=== PATIENT | male | born 1975 | race Caucasian/White ===

== ENCOUNTER 2021-12-09 15:52 | Emergency (ER) | payer OTHER ==
[2021-12-09 16:49] VITALS: TEMP 99.4
[2021-12-09] MEDS ORDERED: ACETAMINOPHEN TAB 500 MG TAB PO STA (17:23)
[2021-12-09] MEDS ORDERED: SODIUM CHLORIDE 0.9% 1,000 ML IV ONE (17:40)
--- NOTE | 2021-12-09 17:42 | XR ---
EXAMINATION TYPE: XR chest 2V DATE OF EXAM: 12/09/2021 COMPARISON: NONE HISTORY: Cough TECHNIQUE: 2 views FINDINGS: Heart is normal. Lungs are clear of infiltrate. No heart failure. There are no hilar masses . Bony thorax is intact. Pulmonary vascularity is normal. IMPRESSION: Normal chest.
--- NOTE | 2021-12-09 17:46 | ED ---
URI HPI - General Chief Complaint: Upper Respiratory Infection Stated Complaint: SOB, chest tightness, Fever Time Seen by Provider: 12/09/21 17:35 Source: patient, RN notes reviewed, old records reviewed Mode of arrival: ambulatory Limitations: no limitations - History of Present Illness Initial Comments: 46-year-old male, well-appearing presents ambulatory to the emergency room with complaints of runny nose, cough and shortness of breath since Tuesday. Patient does have a low-grade fever. He has been vaccinated and boosted against coronavirus. Has not history of liver disease does not take any medication on a daily basis. MD Complaint: fever, cough, rhinorrhea, nasal congestion -: days(s) (4) Severity scale (1-10): 5 Consistency: constant Improves With: nothing - Related Data Home Medications Medication Instructions Recorded Confirmed No Known Home Medications 12/09/21 12/09/21 Allergies Allergy/AdvReac Type Severity Reaction Status Date / Time amoxicillin Allergy Unknown Verified 12/09/21 20:07 Review of Systems ROS Statement: Those systems with pertinent positive or pertinent negative responses have been documented in the HPI. ROS Other: All systems not noted in ROS Statement are negative. Past Medical History Additional Past Medical History / Comment(s): Liver dx. History of Any Multi-Drug Resistant Organisms: None Reported Additional Past Surgical History / Comment(s): Kidney stone surgery. hernia repair Past Psychological History: No Psychological Hx Reported Smoking Status: Current every day smoker Past Alcohol Use History: None Reported Past Drug Use History: None Reported General Exam Limitations: no limitations General appearance: alert, in no apparent distress Head exam: Present: atraumatic Eye exam: Present: normal appearance ENT exam: Present: mucous membranes moist Neck exam: Present: normal inspection. Absent: tenderness, meningismus Respiratory exam: Present: normal lung sounds bilaterally. Absent: respiratory distress, wheezes, rales, stridor, chest wall tenderness, accessory muscle use, decreased breath sounds Cardiovascular Exam: Present: tachycardia GI/Abdominal exam: Present: soft Back exam: Absent: tenderness, CVA tenderness (R), CVA tenderness (L) Neurological exam: Present: alert, oriented X3, normal gait Psychiatric exam: Present: normal affect, normal mood Skin exam: Present: warm, dry, intact, normal color. Absent: rash, cyanosis, diaphoretic, petechiae, pallor Course Vital Signs 12/09/21 12/09/21 12/09/21 16:45 20:00 21:31 Temperature 99.4 F Pulse Rate 114 H 94 93 Respiratory 20 18 18 Rate Blood Pressure 136/76 131/81 117/82 O2 Sat by Pulse 94 L 96 95 Oximetry - Reevaluation(s) Reevaluation #1: 12/09/21 19:51 Medications have not been given to patient at this time. He states he is feeling a little better after resting in the ER. Nursing staff was notified and they are working towards getting the patient his medications. Time: 19:51 Medical Decision Making - Medical Decision Making Patient was initially evaluated in triage. He did test positive for coronavirus and is agreeable to receiving the monoclonal antibodies infusion. Chest x-ray is negative for any acute infiltrate. EKG shows sinus rhythm with tachycardia. Patient was given a liter normal saline and Tylenol. His heart rate came down to 90. Pulse ox 96% on room air. He received monoclonal antibodies infusion and tolerated it well. He'll be discharged home to follow his primary care doctor. Return to the emergency with the new concerning symptoms. Self quarantine for 10 days from symptom onset. - Lab Data Lab Results 12/09/21 Range/Units 16:51 Coronavirus (PCR) Detected A (Not Detectd) - EKG Data EKG shows normal: sinus rhythm Rate: tachycardia (Ventricular rate of 111, MA interval 0.113, QRS 0.85, QTC 0.373) Disposition Clinical Impression: COVID-19 Disposition: HOME SELF-CARE Condition: Good Instructions (If sedation given, give patient instructions): Coronavirus Disease 2019 (COVID-19) Additional Instructions: Self quarantine for 10 days from symptom onset. If no fever or symptoms after 5 days you can go into public with just a mask. You can take Tylenol and Motrin as needed for body aches or fevers. Vitamin C, vitamin D and zinc to improve immune health. Increase your fluid intake to prevent dehydration. Return to the emergency room with any new or concerning symptoms. Is patient prescribed a controlled substance at d/c from ED?: No Referrals: None,Stated [Primary Care Provider] - 1-2 days
[2021-12-09] MEDS ORDERED: BEBTELOVIMAB (EUA) 175 MG/2 ML VIAL IV ONE (18:30)
[2021-12-09 20:06] VITALS: RESP 18
[2021-12-09 21:32] VITALS: BP 117/82; PULSE 93
== END 2021-12-09 21:32 | disposition home or self-care (01) ==
LOC: EC 15:52
DX: U07.1 COVID-19 (principal); F17.200 Nicotine dependence, unspecified, uncomplicated; Z88.0 Allergy status to penicillin
CPT/HCPCS: 93005; 87635; 71046; 99285; 96360; Q0222

== ENCOUNTER → 2023-04-29 | Outpatient (CLI) | payer OTHER ==
--- NOTE | 2023-04-29 11:05 | CT ---
EXAMINATION TYPE: CT abdomen pelvis wo con DATE OF EXAM: 04/29/2023 COMPARISON: HISTORY: right flank pain CT DLP: 1550 mGycm Automated exposure control for dose reduction was used. TECHNIQUE: Helical acquisition of images was performed from the lung bases through the pelvis. FINDINGS: LUNG BASES: Trace of pericardial fluid. Lungs are clear. Heart size normal. LIVER/GB: No significant abnormality is appreciated. PANCREAS: No significant abnormality is seen. SPLEEN: No significant abnormality is seen. ADRENALS: No significant abnormality is seen. KIDNEYS: Right kidney: There is a 7.5 mm mid to lower pole right renal calculus Left kidney: There is a punctate 2 mm lower pole left renal calculus. FREE AIR: No free air is visualized REPRODUCTIVE ORGANS: Prostate normal in size. URINARY BLADDER: Bladder is decompressed and limited. ADENOPATHY: There is a small 1.2 cm peripancreatic mesenteric lymph node. OSSEOUS STRUCTURES: No significant abnormality is seen. BOWEL: No evidence of obstruction or inflammation. OTHER: There is a 1.2 cm soft tissue nodule in the mesentery anterior to the right perirenal space in determinate. Small bilateral fat-containing inguinal hernia. Aorta normal caliber. Small fat-containing anterior abdominal wall hernia. IMPRESSION: 1. BILATERAL NONOBSTRUCTING NEPHROLITHIASIS WITH LARGEST STONE NOTED ON THE RIGHT MEASURING SIDED 7.5 MM 2. 1.2 CM MESENTERIC SOFT TISSUE NODULE IS INDETERMINATE WITHIN THE RIGHT ABDOMEN. RECOMMEND 3 MONTH FOLLOW-UP CT ABDOMEN TO CONFIRM STABILITY.
== END | disposition home or self-care (01) ==
LOC: RADCTMAIN 09:35
PROVIDERS: ATTEND Urology
DX: N20.0 Calculus of kidney (principal)
CPT/HCPCS: 74176

== ENCOUNTER → 2023-08-22 | Outpatient (CLI) | payer OTHER ==
--- NOTE | 2023-08-22 12:04 | CT ---
EXAMINATION TYPE: CT abdomen pelvis w con DATE OF EXAM: 08/22/2023 COMPARISON: 04/29/2023 HISTORY: right sided abdominal pain CT DLP: 1559 mGycm CONTRAST: CT scan of the abdomen and pelvis is performed with Oral Contrast and with IV Contrast, patient injec antonio with 100 mL of Isovue 300. FINDINGS: LUNG BASES-: No visible nodule. No infiltrate. LIVER/GB: No calcified gallstones. Hepatomegaly with underlying hepatic steatosis. No space occupy ing hepatic lesion. Biliary tree is of normal caliber. PANCREAS: No inflammation. No distinct mass. SPLEEN: No splenic enlargement. No lesion seen. ADRENALS: No nodule. No thickening. KIDNEYS/BLADDER: No hydronephrosis. 9.4 mm calculus lower pole right kidney. No distinct renal mass. Urinary bladder grossly unremarkabl e. BOWEL: Normal appendix. Normal bowel caliber. No inflammation. Stable 1.2 cm mesenteric nodule venancio cent ascending colon on the right is stable. GENITAL ORGANS: No gross abnormality. LYMPH NODES: No greater than 1cm abdominal or pelvic lymph nodes are appreciated. AORTA: No significant abnormality. OSSEOUS STRUCTURES: No significant abnormality is seen. OTHER: No significant additional abnormality is seen. IMPRESSION: 1. Stable 1.2 cm mesenteric nodule adjacent ascending colon on the right is stable. Consider follow-u p in 1 year. 2. Nonobstructing right-sided nephrolithiasis.
== END | disposition home or self-care (01) ==
LOC: RADCTMAIN 09:55
PROVIDERS: ATTEND Internal Medicine
DX: K63.89 Other specified diseases of intestine (principal); N20.0 Calculus of kidney; K66.8 Other specified disorders of peritoneum
CPT/HCPCS: 74177; Q9967

== ENCOUNTER → 2023-09-27 | Outpatient (CLI) | payer OTHER ==
[2023-09-27 20:04] LABS: Appearance,Urine Clear (Clear); Basophils # (A) 0.04 X 10*3/uL (0.00-0.10); Basophils % (A) 0.5 %; Bilirubin,Urine Negative (Negative); Blood,Urine Negative (Negative); Color,Urine Dark Yellow (Yellow); Eosinophils # (A) 0.21 X 10*3/uL (0.04-0.35); Eosinophils % (A) 2.4 %; HCT 43.3 % (39.6-50.0); HGB 14.2 g/dL (13.0-17.0); Ketones,Urine Negative (Negative); Lymphocytes # (A) 1.92 X 10*3/uL (0.90-5.00); MCH 32.1 pg (27.0-32.0); MCHC 32.8 g/dL (32.0-37.0); MCV 97.7 FL (80.0-97.0); Mean Platelet Volume 10.1 FL (9.5-12.2); Monocytes # (A) 0.41 X 10*3/uL (0.20-1.00); Monocytes % (A) 4.7 %; NRBC Per 100 WBC 0 X 10*3/uL (0.00-0.01); Neutrophils # (A) 6.08 X 10*3/uL (1.80-7.70); Neutrophils % (A) 69.8 %; Nitrite,Urine Negative (Negative); Platelet Count 154 X 10*3/uL (140-440); RBC 4.43 X 10*6/uL (4.40-5.60); RDW 13.1 % (11.5-14.5); Specific Gravity,Urine 1.032 (1.001-1.030); Urobilinogen,Urine 0.2; WBC 8.71 X 10*3/uL (4.50-10.00)
[2023-09-27 20:38] LABS: Carbon Dioxide 23.3 mmol/L (21.6-31.8); Chloride 104 mmol/L (96-109); Potassium 3.9 mmol/L (3.5-5.5); Sodium 140 mmol/L (135-145)
== END | disposition home or self-care (01) ==
LOC: LABPAT 14:48
PROVIDERS: ATTEND Urology
DX: Z01.812 Encounter for preprocedural laboratory examination (principal); N20.0 Calculus of kidney
CPT/HCPCS: 80051; 81003; 82565; 84520; 85025

== ENCOUNTER 2023-10-03 06:12 | Day surgery (SDC) | payer OTHER ==
[2023-09-29 15:52] VITALS: BMI 32.6
--- NOTE | 2023-10-02 15:13 | P.GSHP ---
History of Present Illness H&P Date: 10/02/23 47 yo male with a history of kidney stones primarily uric acid. His last stone was treated with ureteroscopy. He presents after having some right flank pain. A ct scan at [facility] shows a 1 cm rlp stone. He comes for eswl right as he refuses ureteroscopy. I will see if I can see the stone on kUB to see if eswl is possible - Constitutional Constitutional: Denies chills, Denies fever - EENT Eyes: denies blurred vision, denies pain Ears, nose, mouth and throat: Denies headache, Denies sore throat - Cardiovascular Cardiovascular: Denies chest pain, Denies shortness of breath - Respiratory Respiratory: Denies cough, Denies 7 - Gastrointestinal Gastrointestinal: Denies abdominal pain, Denies diarrhea, Denies nausea, Denies vomiting - Genitourinary (Female) Genitourinary: Denies dysuria, Denies hematuria - Genitourinary (Male) Genitourinary: Denies dysuria, Denies hematuria - Musculoskeletal Musculoskeletal: Denies myalgias - Integumentary Integumentary: Denies pruritus, Denies rash - Neurological Neurological: Denies numbness, Denies weakness - Psychiatric Psychiatric: Denies anxiety, Denies depression - Endocrine Endocrine: Denies fatigue, Denies weight change Past Medical History Past Medical History: Hyperlipidemia Additional Past Medical History / Comment(s): KIDNEY STONES. FATTY LIVER DISEASE. GOUT History of Any Multi-Drug Resistant Organisms: None Reported Additional Past Surgical History / Comment(s): Kidney stone surgery. hernia repair Past Anesthesia/Blood Transfusion Reactions: No Reported Reaction Smoking Status: Current every day smoker - Past Family History Mother Family Medical History: No Reported History Medications and Allergies Home Medications Medication Instructions Recorded Confirmed Type Atorvastatin [Lipitor] 20 mg PO HS 09/29/23 09/29/23 History HYDROcodone/APAP 5-325MG [[place] 1 tab PO Q6HR PRN 09/29/23 09/29/23 History 5-325] Sodium Bicarbonate Tab 650 mg PO TID 09/29/23 09/29/23 History allopurinoL [Zyloprim] 300 mg PO W/LUNCH 09/29/23 09/29/23 History Allergies Allergy/AdvReac Type Severity Reaction Status Date / Time amoxicillin Allergy Unknown Verified 03/14/24 15:19 Childhood Surgical - Exam - General well developed, well nourished, no distress - Eyes normal ocular movement, no icteric - ENT no hearing loss, no congestion - Neck no masses, trachea midline - Respiratory normal respiratory effort, clear to auscultation - Abdomen Abdomen: soft, non tender, no guarding, no rigid, no rebound - Integumentary no rash, no abnormal pigmentation - Neurologic no disoriented, no combative - Psychiatric oriented to time, oriented to person, oriented to place, speech is normal, memory intact Results - Imaging CT scan - abdomen: report reviewed, image reviewed CT scan - pelvis: report reviewed, image reviewed Assessment and Plan Assessment: Impression: right renal stone Plan: eswl right
[2023-10-03] MEDS ORDERED: HYDROmorphone 0.5 MG/0.5 ML SYRINGE IVP PRN (06:43)
[2023-10-03] MEDS ORDERED: METOCLOPRAMIDE 5 MG/ML 2 ML VIAL IVP PRN (06:43)
[2023-10-03] MEDS ORDERED: LIDOCAINE 1% (10MG/ML) FOR IV START INTRADERMA PRN (06:43)
[2023-10-03] MEDS: LACTATED RINGERS 1,000 ML IV SCH (07:06)
[2023-10-03] MEDS: ONDANSETRON 4 MG/2 ML VIAL IVP ONE (07:07)
[2023-10-03 07:08] VITALS: TEMP 97.9
[2023-10-03] MEDS ORDERED: PROPOFOL 10 MG/ML 20 ML VIAL IV ONE (07:25)
[2023-10-03] MEDS ORDERED: fentaNYL (PF) 50 MCG/ML 2 ML AMP ONE (07:25)
[2023-10-03] MEDS ORDERED: MIDAZOLAM 2 MG/2 ML VIAL ONE (07:25)
[2023-10-03] MEDS ORDERED: LIDOCAINE 1% INJ 10MG/ML (20 ML MDV) ONE (07:25)
--- NOTE | 2023-10-03 07:31 | XR ---
EXAMINATION TYPE: XR KUB DATE OF EXAM: 10/03/2023 6:27 AM CLINICAL INDICATION:Male, 47 years old with history of Right Renal Calculi N20.0; [facility] COMPARISON: None. TECHNIQUE: One radiographic view of the abdomen was obtained. FINDINGS: The bowel gas pattern is nonspecific without dilated loops of small or large bowel. There i s no evidence for organomegaly or pneumoperitoneum. The osseous structures are intact. Right renal calculi measuring up to 10 mm. Fecal material and gas are demonstrated throughout the colon and rectu m. Bilateral hip osteoarthrosis. IMPRESSION: 1. Right renal calculus. 2. Nonspecific bowel gas pattern without radiographic evidence for acute process.
--- NOTE | 2023-10-03 07:56 | P.OP ---
Date of Procedure: 10/03/23 Preoperative Diagnosis: Right renal calculus Postoperative Diagnosis: Same Procedure(s) Performed: Extracorporeal shockwave lithotripsy, 2500 shocks at energy level IV Anesthesia: MAC Surgeon: Joseluis Gillette Pathology: none sent Condition: stable Disposition: PACU Indications for Procedure: The patient is 47. History of kidney stones. He has a 7/8 mm right lower pole calyceal stone. He comes for shockwave lithotripsy Description of Procedure: The patient was brought to the operating suite. He's placed on the lithotripsy table. He was given IV sedation. The stone was seen in 2 views with fluoroscopy. Using the compact 2 delta lithotripter 2500 shocks at energy level IV administered to fracture the stone nicely. The end of the procedure the patient's awake and returned recovery in good condition. He tolerated the procedure well. He'll be discharged home upon recovery.
[2023-10-03 08:51] VITALS: BP 134/86; PULSE 66; RESP 14
== END 2023-10-03 08:47 | disposition home or self-care (01) ==
LOC: ORWHC2ENDO 06:12
PROVIDERS: ATTEND Urology
DX: N20.0 Calculus of kidney (principal); K76.0 Fatty (change of) liver, not elsewhere classified; M10.9 Gout, unspecified; E78.5 Hyperlipidemia, unspecified; F17.200 Nicotine dependence, unspecified, uncomplicated; Z87.442 Personal history of urinary calculi; Z88.0 Allergy status to penicillin; Z79.899 Other long term (current) drug therapy
CPT/HCPCS: 74018; 50590; J2250; J2405; J2001; J3010; J2704

== ENCOUNTER → 2023-10-11 | Outpatient (CLI) | payer OTHER ==
--- NOTE | 2023-10-12 15:22 | XR ---
EXAMINATION TYPE: XR KUB DATE OF EXAM: 10/11/2023 10:49 AM CLINICAL INDICATION:Male, 47 years old with history of N20.0 CALCULUS OF KIDNEY; [facility] COMPARISON: KUB 10/03/2023 TECHNIQUE: Supine KUB was obtained. 2 images. FINDINGS: The bowel gas pattern is nonspecific, likely nonobstructive without dilated loops of small or large b owel. Fecal material and gas are demonstrated throughout the colon and rectum. No gross evidence of o rganomegaly. No evidence of pneumoperitoneum in the limitations of supine technique. Essentially stable size of approximately 10 mm calculus projected over the lower pole of the right ki dney. This appears if anything slightly less dense and more mottled, and potentially may be beginning to break up or dissolve. No new calculi are seen projected over the urinary tract. Osseous structures appear grossly intact and unchanged. IMPRESSION: No significant change in size or position of right renal calculus.
== END | disposition home or self-care (01) ==
LOC: RADXRMAIN 10:35
PROVIDERS: ATTEND Urology
DX: N20.0 Calculus of kidney (principal)
CPT/HCPCS: 74018

== ENCOUNTER 2023-11-03 17:21 | Emergency (ER) | payer OTHER ==
[2023-11-03 17:55] VITALS: RESP 18
[2023-11-03 18:05] LABS: Appearance,Urine Clear (Clear); Bilirubin,Urine Negative (Negative); Blood,Urine Moderate (Negative); Color,Urine Light Yellow; Glucose,Urine (UA) Negative (Negative); Ketones,Urine Negative (Negative); Leukocyte Esterase,Urine Negative (Negative); Nitrite,Urine Negative (Negative); PH, Urine 6.5 (5.0-8.0); Protein,Urine Trace (Negative); RBC,Urine >182 /hpf (0-5); Specific Gravity,Urine 1.024 (1.001-1.035); Urobilinogen,Urine <2.0 mg/dL (<2.0); WBC,Urine 1 /hpf (0-5)
[2023-11-03] MEDS: ONDANSETRON 4 MG/2 ML VIAL IVP STA (18:33)
[2023-11-03] MEDS: KETOROLAC 15 MG/ML 1 ML VIAL IVP STA (18:34)
[2023-11-03] MEDS: MORPHINE SULFATE 4 MG/ML SYRINGE IVP STA ×2 (18:35→19:47)
[2023-11-03] MEDS: SODIUM CHLORIDE 0.9% 1,000 ML IV STA (18:37)
--- NOTE | 2023-11-03 19:08 | CT ---
EXAMINATION TYPE: CT abdomen pelvis wo con DATE OF EXAM: 11/03/2023 COMPARISON: 04/29/2023 HISTORY: flank pain and blood in the urine CT DLP: 916.7 mGycm Automated exposure control for dose reduction was used. TECHNIQUE: Helical acquisition of images was performed from the lung bases through the pelvis. FINDINGS: The lungs are clear. Gallbladder is normal and there is no gallstone, wall thickening, pericholecystic fluid or distention . There is no biliary ductal dilatation. There is no organomegaly of the liver, pancreas, spleen or adrenal glands. There is mild hydronephrosis on the right secondary to a 5.4 mm proximal right ureteral calculus. In addition, there is a 6.3 mm calcification in the region of the right UPJ. A third 12 mm calcification is seen in one of the lower pole calyces. There are no left renal calcifications or hydronephrosis.. The caliber of the abdominal aorta is normal and there is no retroperitoneal adenopathy or hemorrhage . The bowel loops are normal in caliber is no evidence of obstruction. No inflammatory changes are iden tified in the mesentery and there is no free intraperitoneal air or fluid. There is no pelvic mass, free fluid, abscess or adenopathy. There is mild diverticulosis of the colon without CT evidence of diverticulitis. The osseous structures and soft tissues are unremarkable. IMPRESSION: 1. Mild right hydronephrosis secondary to 2 calcifications, one in the UPJ and a second in the proxi mal right ureter as described above. 2. No other significant abnormalities within the abdomen or pelvis.
[2023-11-03 19:10] LABS: Basophils % (A) 0 %; Eosinophils # (A) 0.2 k/uL (0-0.7); Eosinophils % (A) 1 %; HCT 40.5 % (39.0-53.0); HGB 13.6 gm/dL (13.0-17.5); Lymphocytes # (A) 1.6 k/uL (1.0-4.8); Lymphocytes % (A) 14 %; MCH 31.9 pg (25.0-35.0); MCHC 33.5 g/dL (31.0-37.0); MCV 95.1 fL (80.0-100.0); Mean Platelet Volume 6.9; Monocytes # (A) 0.6 k/uL (0-1.0); Monocytes % (A) 5 %; Neutrophils # (A) 9.3 k/uL (1.3-7.7); Neutrophils % (A) 78 %; Platelet Count 169 k/uL (150-450); RBC 4.25 m/uL (4.30-5.90); RDW 12.8 % (11.5-15.5); WBC 11.9 k/uL (3.8-10.6)
[2023-11-03 19:26] LABS: ALT 31 U/L (4-49); AST 26 U/L (17-59); African American GFR (CKD) >90 (>60 ml/min/1.73 sqM); Albumin 4.4 g/dL (3.5-5.0); Alkaline Phosphatase 88 U/L (38-126); Anion Gap 7 mmol/L; Blood Urea Nitrogen 20 mg/dL (9-20); Calcium 9.4 mg/dL (8.4-10.2); Carbon Dioxide 26 mmol/L (22-30); Chloride 104 mmol/L (98-107); Glucose 92 mg/dL (74-99); Non-African American GFR(CKD) >90 (>60 ml/min/1.73 sqM); Potassium 4.1 mmol/L (3.5-5.1); Sodium 137 mmol/L (137-145); Total Bilirubin 0.7 mg/dL (0.2-1.3); Total Protein 6.5 g/dL (6.3-8.2)
--- NOTE | 2023-11-03 19:41 | ED ---
General Adult HPI - General Chief complaint: Back Pain/Injury Stated complaint: R side pain Time Seen by Provider: 11/03/23 18:00 Source: patient, RN notes reviewed, old records reviewed Mode of arrival: ambulatory Limitations: no limitations - History of Present Illness Initial comments: Patient is a 47-year-old male presents emergency department complaining of right flank pain. Has a history of kidney stones and states that this feels like kidney stones. Had lithotripsy approximately 4 to 5 weeks ago. No other acute complaints at this time other than mild nausea. Presents for further evaluation. Denies any dysuria or hematuria. Has no constipation or diarrhea. No fevers. - Related Data Home Medications Medication Instructions Recorded Confirmed Atorvastatin [Lipitor] 20 mg PO HS 09/29/23 10/03/23 HYDROcodone/APAP 5-325MG [[place] 1 tab PO Q6HR PRN 09/29/23 10/03/23 5-325] Sodium Bicarbonate Tab 650 mg PO TID 09/29/23 10/03/23 allopurinoL [Zyloprim] 300 mg PO W/LUNCH 09/29/23 10/03/23 Previous Rx's Medication Instructions Recorded Tamsulosin [Flomax] 0.4 mg PO DAILY 14 Days #14 cap 11/03/23 Allergies Allergy/AdvReac Type Severity Reaction Status Date / Time amoxicillin Allergy Unknown Verified 10/03/23 06:52 Childhood Review of Systems ROS Statement: Those systems with pertinent positive or pertinent negative responses have been documented in the HPI. Review of Systems: CONST: Denies fever EYES: Denies blurry vision ENT: Denies nasal congestion C/V: Denies Chest pain RESP: Denies shortness of breath GI: Endorses right flank pain : Denies dysuria SKIN: Denies rash. MSK: Denies joint pain. NEURO: Denies headache ROS Other: All systems not noted in ROS Statement are negative. Past Medical History Additional Past Medical History / Comment(s): Liver dx. History of Any Multi-Drug Resistant Organisms: None Reported Additional Past Surgical History / Comment(s): Kidney stone surgery. hernia rep air Past Psychological History: No Psychological Hx Reported Smoking Status: Former smoker Past Alcohol Use History: None Reported Past Drug Use History: None Reported General Exam - General Exam Comments Initial Comments: General: Appears in no acute distress. HEAD: Normal with no signs of head trauma. EYES: PERRLA, EOMI, conjunctiva normal, no discharge. ENT: Hearing grossly intact, normal oropharynx. RESPIRATORY: Clear breath sounds bilaterally. No wheezes, rales, or rhonchi. C/V: Regular rate and rhythm. S1 and S2 auscultated, no edema ABD: Abdomen soft, nondistended. Tender palpation in the right flank and right CVA. No guarding. No rebound tenderness. No peritoneal signs. EXT: Normal range of motion, no obvious deformity SKIN: No rashes or lesions observed on exposed skin. NEURO: Alert and oriented x 4. Limitations: no limitations Course Vital Signs 11/03/23 11/03/23 17:28 19:53 Temperature 98.3 F 97.7 F Pulse Rate 80 77 Respiratory 18 18 Rate Blood Pressure 161/95 135/80 O2 Sat by Pulse 95 96 Oximetry Medical Decision Making - Medical Decision Making Was pt. sent in by a medical professional or institution (, PA, POLE LIFT OPERATOR, urgent care, hospital, or halfway...) When possible be specific @ -No Did you speak to anyone other than the patient for history (EMS, parent, family, police, friend...)? What history was obtained from this source @ -No Did you review nursing and triage notes (agree or disagree)? Why? @ -I reviewed and agree with nursing and triage notes Were old charts reviewed (outside hosp., previous admission, EMS record, old EKG, old radiological studies, urgent care reports/EKG's, halfway records)? Report findings @ -Old charts reviewed Differential Diagnosis (chest pain, altered mental status, abdominal pain women, abdominal pain men, vaginal bleeding, weakness, fever, dyspnea, syncope, headache, dizziness, GI bleed, back pain, seizure, CVA, palpatations, mental health, musculoskeletal)? @ -Differential Abdominal Pain Men: Appendicitis, cholecystitis, diverticulosis, ischemic bowel, pancreatitis, hepatitis, UTI, gastroenteritis, AAA, incarcerated hernia, bowel obstruction, constipation, inflammatory bowel, hepatitis, peptic ulcer disease, splenic infarction, perforated viscus, testicular torsion, this is not meant to be an all-inclusive list EKG interpreted by me (3pts min.). @ -None done X-rays interpreted by me (1pt min.). @ -None done CT interpreted by me (1pt min.). @ -CT shows 2 kidney stones on the right, causing mild hydronephrosis. 1 is 5.4 mm and another 6.3 mm. Patient has an uncomplicated 12 mm stone located still in the kidney. U/S interpreted by me (1pt. min.). @ -None done What testing was considered but not performed or refused? (CT, X-rays, U/S, labs)? Why? @ -None What meds were considered but not given or refused? Why? @ -None Did you discuss the management of the patient with other professionals (professionals i.e. , PA, POLE LIFT OPERATOR, lab, RT, psych nurse, neonatal social worker, sagger soak, teacher, space officer, disability case manager)? Give summary @ -No Was smoking cessation discussed for >3mins.? @ -No Was critical care preformed (if so, how long)? @ -No Were there social determinants of health that impacted care today? How? (Homelessness, low income, unemployed, alcoholism, drug addiction, transportation, low edu. Level, literacy, decrease access to med. care, custodial, rehab)? @ -No Was there de-escalation of care discussed even if they declined (Discuss DNR or withdrawal of care, Hospice)? DNR status @ -No What co-morbidities impacted this encounter? (DM, HTN, Smoking, COPD, CAD, Cancer, CVA, ARF, Chemo, Hep., AIDS, mental health diagnosis, sleep apnea, morbid obesity)? @ -Kidney stones Was patient admitted / discharged? Hospital course, mention meds given and route, prescriptions, significant lab abnormalities, going to OR and other pertinent info. @ -Based on the patient's presentation and exam, presents with right flank pain. Has a history of kidney stones and this feels like his kidney stones. We will obtain basic labs as well as CT. He will be symptomatically treat with IV fluids, Zofran, pain medications. Patient was in agreement this plan. Laboratory studies remarkable for mild leukocytosis of 11.9 likely reactive. Urine shows blood but no evidence of infection. Normal kidney function. CT imaging does show 2 ureteral lithiasis on the right, 5 mm and 6 mm with mild hydronephrosis. Also a larger stone inside of the right kidney that is likely not causing any symptoms. I discussed results with patient. He expressed understanding. Will be discharged home with Flomax, analgesia medications. Patient already has Zofran as well as a strainer at home. Recommended follow-up with his urologist. He was in agreement this plan. I will provide the patient with a prescription for Tylenol 3 starter pack, Tay max. I instructed the patient to follow up with their PCP in the next 1-3 days.. I explained that the patient should return to the emergency department if they experience any worsening symptoms. Strict return precautions were discussed with the patient. The patient expressed understanding of these instructions. I answered all questions that the patient had. The patient was discharged home in good condition with their prescriptions and follow up information. Undiagnosed new problem with uncertain prognosis? @ -No Drug Therapy requiring intensive monitoring for toxicity (Heparin, Nitro, Insuli n, Cardizem)? @ -No Were any procedures done? @ -No Diagnosis/symptom? @ -Ureteral lithiasis Acute, or Chronic, or Acute on Chronic? @ -Acute Uncomplicated (without systemic symptoms) or Complicated (systemic symptoms)? @ -Complicated Side effects of treatment? @ -No Exacerbation, Progression, or Severe Exacerbation? @ -No Poses a threat to life or bodily function? How? (Chest pain, USA, OR, pneumonia, PE, COPD, DKA, ARF, appy, cholecystitis, CVA, Diverticulitis, Homicidal, Suicidal, threat to staff... and all critical care pts) @ -Unlikely - Lab Data Result diagrams: 11/03/23 18:39 11/03/23 18:39 Lab Results 11/03/23 11/03/23 11/03/23 Range/Units 17:45 18:39 18:39 WBC 11.9 H (3.8-10.6) k/uL RBC 4.25 L (4.30-5.90) m/uL Hgb 13.6 (13.0-17.5) gm/dL Hct 40.5 (39.0-53.0) % MCV 95.1 (80.0-100.0) fL MCH 31.9 (25.0-35.0) pg MCHC 33.5 (31.0-37.0) g/dL RDW 12.8 (11.5-15.5) % Plt Count 169 (150-450) k/uL MPV 6.9 Neutrophils % 78 % Lymphocytes % 14 % Monocytes % 5 % Eosinophils % 1 % Basophils % 0 % Neutrophils # 9.3 H (1.3-7.7) k/uL Lymphocytes # 1.6 (1.0-4.8) k/uL Monocytes # 0.6 (0-1.0) k/uL Eosinophils # 0.2 (0-0.7) k/uL Basophils # 0.0 (0-0.2) k/uL Sodium 137 (137-145) mmol/L Potassium 4.1 (3.5-5.1) mmol/L Chloride 104 (98-107) mmol/L Carbon Dioxide 26 (22-30) mmol/L Anion Gap 7 mmol/L BUN 20 (9-20) mg/dL Creatinine 0.84 (0.66-1.25) mg/dL Est GFR (CKD-EPI)AfAm >90 (>60 ml/min/1.73 sqM) Est GFR (CKD-EPI)NonAf >90 (>60 ml/min/1.73 sqM) Glucose 92 (74-99) mg/dL Calcium 9.4 (8.4-10.2) mg/dL Total Bilirubin 0.7 (0.2-1.3) mg/dL AST 26 (17-59) U/L ALT 31 (4-49) U/L Alkaline Phosphatase 88 (38-126) U/L Total Protein 6.5 (6.3-8.2) g/dL Albumin 4.4 (3.5-5.0) g/dL Urine Color Light Yellow Urine Appearance Clear (Clear) Urine pH 6.5 (5.0-8.0) Ur Specific [place] 1.024 (1.001-1.035) Urine Protein Trace H (Negative) Urine Glucose (UA) Negative (Negative) Urine Ketones Negative (Negative) Urine Blood Moderate H (Negative) Urine Nitrite Negative (Negative) Urine Bilirubin Negative (Negative) Urine Urobilinogen <2.0 (<2.0) mg/dL Ur Leukocyte Esterase Negative (Negative) Urine RBC >182 H (0-5) /hpf Urine WBC 1 (0-5) /hpf Disposition Clinical Impression: Ureterolithiasis Disposition: HOME SELF-CARE Condition: Good Instructions (If sedation given, give patient instructions): Kidney Stones (ED) Prescriptions: Tamsulosin [Flomax] 0.4 mg PO DAILY 14 Days #14 cap Is patient prescribed a controlled substance at d/c from ED?: No Referrals: Sergio Thompson DO [Primary Care Provider] - 1-2 days Time of Disposition: 19:40
[2023-11-03] MEDS: ACET/COD 300 MG/30 MG STARTER PACK 6 TAB BTL PO STA (19:47)
[2023-11-03] MEDS: TAMSULOSIN 0.4 MG CAP.ER.24H PO STA (19:48)
[2023-11-03 20:31] VITALS: BP 135/80; PULSE 77; TEMP 97.7
== END 2023-11-03 19:55 | disposition home or self-care (01) ==
LOC: EC 17:21
DX: N13.2 Hydronephrosis with renal and ureteral calculous obstruction (principal); Z87.442 Personal history of urinary calculi; Z88.0 Allergy status to penicillin
CPT/HCPCS: 36415; 80053; 85025; 81001; 74176; 99284; 96374; 96375 ×2; 96376; 96361; J2270; J2405; J1885

== ENCOUNTER → 2023-11-22 | Outpatient (CLI) | payer OTHER ==
--- NOTE | 2023-11-22 12:22 | XR ---
EXAMINATION TYPE: XR KUB DATE OF EXAM: 11/22/2023 Comparison: 10/11/2023 Clinical History: 47-year-old male N200 CALCULUS OF KIDNEY Findings: Nonobstructive bowel gas pattern. No significant stool burden. Right-sided renal calculi are present, largest measuring 7 mm and 5 mm. Lung bases are clear. Impression: Right-sided nephrolithiasis. Largest calculi measure 9 mm and 5 mm.
== END | disposition home or self-care (01) ==
LOC: RADXRMAIN 09:13
PROVIDERS: ATTEND Urology
DX: N20.0 Calculus of kidney (principal)
CPT/HCPCS: 74018

== ENCOUNTER → 2023-12-16 | Outpatient (CLI) | payer OTHER ==
--- NOTE | 2023-12-16 16:48 | XR ---
EXAMINATION TYPE: XR KUB DATE OF EXAM: 12/16/2023 4:23 PM CLINICAL INDICATION:Male, 48 years old with history of N20.0 CALCULUS OF KIDNEY; [facility] COMPARISON: CT 11/03/2023. TECHNIQUE: One radiographic view of the abdomen was obtained. FINDINGS: The bowel gas pattern is nonspecific without dilated loops of small or large bowel. There i s no evidence for organomegaly or pneumoperitoneum. The osseous structures are intact. Evaluation t he kidneys for renal stones is limited due to overlying bowel gas. There is 3 densities in the projec ting just right of the sacrum possibly within the distal ureter measuring up to [address] correlate seen on 11/03/2023. These findings favor distal ureteral calculi. Fecal material and gas are demonstra antonio throughout the colon and rectum. IMPRESSION: 1. Bowel gas limits evaluation for renal calculi. There our new calcific densities near the distal r ight ureter possibly representing ureteral stones. Attention on short-term follow-up. 2. Nonspecific bowel gas pattern without radiographic evidence for acute process.
== END | disposition home or self-care (01) ==
LOC: RADXRMAIN 16:05
PROVIDERS: ATTEND Urology
DX: N20.0 Calculus of kidney (principal); N28.89 Other specified disorders of kidney and ureter
CPT/HCPCS: 74018

== ENCOUNTER → 2024-03-05 | Outpatient (CLI) | payer OTHER ==
--- NOTE | 2024-04-04 13:25 | NM ---
Patient: Jesse Gutierrez L Ordering Physician: Unknown, Unknown ID: [id number] Phone, Pager: Phone: N/A Pager: N/A : [phone] Age/Gender: 48Y, M Primary Location: N/A Procedure: NM parathyroid Anup dy Date: 03/05/2024 12:02:00 PM EXAMINATION TYPE: NM parathyroid w/spect DATE OF EXAM: 03/06/2024 COMPARISON: NONE CLINICAL INDICATION: Unknown, old with history of ; TECHNIQUE: Following administration of 22.6 mCi Tc99m Sestamibi. Anterior projection images of the neck and ches t were obtained 30 minutes and 4 hours post injection. SPECT images of the neck and chest were obtai trell and reconstructed in three axes. FINDINGS: Thyroid tracer washout: Delayed images demonstrate near-complete tracer washout from the thyroid. Parathyroid uptake: None. The two-hour delayed images do not demonstrate any focal abnormal persisten t uptake in the region of the parathyroid glands to suggest parathyroid adenoma. Normal uptake: There is physiological tracer uptake in the myocardium, liver, salivary glands, and th yroid gland. IMPRESSION: Normal parathyroid imaging study. No evidence for mediastinal uptake to suggest mediastinal parathyro id adenoma
== END | disposition home or self-care (01) ==
LOC: RADNMMAIN 10:52
PROVIDERS: ATTEND Internal Medicine
DX: E21.3 Hyperparathyroidism, unspecified (principal)
CPT/HCPCS: 78071; A9500

== ENCOUNTER → 2024-03-29 | Outpatient (CLI) | payer OTHER ==
--- NOTE | 2024-03-29 16:41 | XR ---
EXAMINATION TYPE: XR KUB DATE OF EXAM: 03/29/2024 3:30 PM CLINICAL INDICATION: Male, 48 years old with history of N20.0 CALCULUS OF KIDNEY; [facility] COMPARISON: 12/16/2023. TECHNIQUE: One radiographic view of the abdomen was obtained. FINDINGS: The bowel gas pattern is nonspecific without dilated loops of small or large bowel. . Fecal material and gas are demonstrated throughout the colon and rectum. There is no evidence for organomegaly or pneumoperitoneum. The osseous structures are intact. There remains a calculus in the pelvis measuring up to 6 mm near the ureteral fascicular junction. IMPRESSION: There is remains 1 calculus projecting over the location of the distal ureter measuring up to 7 mm. N o renal calculi or other calculi visualized.
== END | disposition home or self-care (01) ==
LOC: RADXRMAIN 15:11
PROVIDERS: ATTEND Urology
DX: N20.0 Calculus of kidney
CPT/HCPCS: 74018

== ENCOUNTER → 2024-05-16 | Outpatient (CLI) | payer OTHER ==
--- NOTE | 2024-05-16 16:30 | XR ---
EXAMINATION TYPE: XR KUB DATE OF EXAM: 05/16/2024 COMPARISON: 03/29/2024 INDICATION: Renal calculus TECHNIQUE: Single view abdomen frontal projection FINDINGS: There is a normal bowel gas pattern. Psoas margins are normal. No organomegaly is present. There is a 0.8 cm calcification in the inferior right hemipelvis, present previously. IMPRESSION: 1. Right hemipelvis suspected 0.8 cm ureteral stone remains present. [facility], Workstation: [facility], 05/16/2024 4:27 PM
== END | disposition home or self-care (01) ==
LOC: RADXRMAIN 15:08
PROVIDERS: ATTEND Internal Medicine
CPT/HCPCS: 74018

== ENCOUNTER → 2024-05-18 | Outpatient (CLI) | payer OTHER ==
[2024-05-19 02:25] LABS: Basophils # (A) 0.04 X 10*3/uL (0.00-0.10); Basophils % (A) 0.6 %; Eosinophils # (A) 0.16 X 10*3/uL (0.04-0.35); Eosinophils % (A) 2.2 %; HCT 45.8 % (39.6-50.0); HGB 15.3 g/dL (13.0-17.0); Lymphocytes # (A) 2.33 X 10*3/uL (0.90-5.00); Lymphocytes % (A) 32.5 %; MCH 32.3 pg (27.0-32.0); MCHC 33.4 g/dL (32.0-37.0); MCV 96.6 FL (80.0-97.0); Mean Platelet Volume 9.4 FL (9.5-12.2); Monocytes # (A) 0.49 X 10*3/uL (0.20-1.00); Monocytes % (A) 6.8 %; NRBC Per 100 WBC 0 X 10*3/uL (0.00-0.01); Neutrophils # (A) 4.12 X 10*3/uL (1.80-7.70); Neutrophils % (A) 57.5 %; Platelet Count 151 X 10*3/uL (140-440); RBC 4.74 X 10*6/uL (4.40-5.60); RDW 13.2 % (11.5-14.5); WBC 7.17 X 10*3/uL (4.50-10.00)
[2024-05-19 02:31] LABS: Appearance,Urine Turbid (Clear); Bilirubin,Urine Negative (Negative); Blood,Urine Negative (Negative); Color,Urine Yellow (Yellow); Ketones,Urine Negative (Negative); Nitrite,Urine Negative (Negative); Specific Gravity,Urine 1.026 (1.001-1.030)
[2024-05-19 02:36] LABS: Bacteria,Urine None Seen (None Seen)
[2024-05-19 03:19] LABS: BUN/Creat Ratio 15.22 Ratio (12.00-20.00); Blood Urea Nitrogen 13.7 mg/dL (9.0-27.0); Calcium 9.4 mg/dL (8.7-10.3); Carbon Dioxide 23.3 mmol/L (21.6-31.8); Chloride 102 mmol/L (96-109); Glucose 111 mg/dL (70-110); Potassium 4.3 mmol/L (3.5-5.5); Sodium 140 mmol/L (135-145)
== END | disposition home or self-care (01) ==
LOC: LABPAT 14:49
PROVIDERS: ATTEND Urology
DX: Z01.812 Encounter for preprocedural laboratory examination (principal); N20.1 Calculus of ureter
CPT/HCPCS: 80048; 81001; 85025

== ENCOUNTER 2024-05-21 12:53 | Day surgery (SDC) | payer OTHER ==
--- NOTE | 2024-05-20 15:59 | P.GSHP ---
History of Present Illness H&P Date: 05/20/24 48 yo male with a history of stones has a 5 mm stone in the distal right ureter that he has been trying to pass for several weeks. He is still having intermittent pain. A kub recently identified the stone distally. He comes for right ureteroscopy with laser lithotripsy. The stones have been primarily ca ox - Constitutional Constitutional: Denies chills, Denies fever - EENT Eyes: denies blurred vision, denies pain Ears, nose, mouth and throat: Denies headache, Denies sore throat - Cardiovascular Cardiovascular: Denies chest pain, Denies shortness of breath - Respiratory Respiratory: Denies cough, Denies 7 - Gastrointestinal Gastrointestinal: Denies abdominal pain, Denies diarrhea, Denies nausea, Denies vomiting - Genitourinary (Female) Genitourinary: Denies dysuria, Denies hematuria - Genitourinary (Male) Genitourinary: Denies dysuria, Denies hematuria - Musculoskeletal Musculoskeletal: Denies myalgias - Integumentary Integumentary: Denies pruritus, Denies rash - Neurological Neurological: Denies numbness, Denies weakness - Psychiatric Psychiatric: Denies anxiety, Denies depression - Endocrine Endocrine: Denies fatigue, Denies weight change Past Medical History Past Medical History: Hyperlipidemia, Liver Disease Additional Past Medical History / Comment(s): Fatty liver. Current Kidney stones, gout. Hx of kidney failure 2019 ? r/t BP meds. History of Any Multi-Drug Resistant Organisms: None Reported Additional Past Surgical History / Comment(s): Kidney stone surgery. hernia repair Past Anesthesia/Blood Transfusion Reactions: No Reported Reaction Smoking Status: Current every day smoker - Past Family History Father Family Medical History: No Reported History Medications and Allergies Home Medications Medication Instructions Recorded Confirmed Type Atorvastatin [Lipitor] 20 mg PO HS 09/29/23 05/18/24 History HYDROcodone/APAP 5-325MG [[place] 1 tab PO Q6HR PRN 09/29/23 05/18/24 History 5-325] allopurinoL [Zyloprim] 300 mg PO W/LUNCH 09/29/23 05/18/24 History Tamsulosin [Flomax] 0.4 mg PO DAILY 14 Days #14 cap 11/03/23 05/18/24 Rx Allergies Allergy/AdvReac Type Severity Reaction Status Date / Time amoxicillin Allergy Unknown Verified 05/18/24 09:13 Childhood Surgical - Exam - General well developed, well nourished, no distress - Eyes normal ocular movement, no icteric - ENT no hearing loss, no congestion - Neck no masses, trachea midline - Respiratory normal respiratory effort, clear to auscultation - Abdomen Abdomen: soft, non tender, no guarding, no rigid, no rebound - Integumentary no rash, no abnormal pigmentation - Neurologic no disoriented, no combative - Psychiatric oriented to time, oriented to person, oriented to place, speech is normal, memory intact Results - Imaging Abdominal x-ray: report reviewed, image reviewed CT scan - abdomen: report reviewed, image reviewed CT scan - pelvis: report reviewed, image reviewed Assessment and Plan Assessment: Impression: Right distal ureteral stone Plan: right ureteroscopy with laser lithotripsy
--- NOTE | 2024-05-21 13:15 | XR ---
EXAMINATION TYPE: XR KUB DATE OF EXAM: 05/21/2024 COMPARISON: Multiple KUB radiographs most recent 05/16/2024, CT abdomen and pelvis 11/03/2023 HISTORY: Presurgical for right-sided kidney stone cystoscopy TECHNIQUE: Single supine KUB image of the abdomen is obtained FINDINGS: Small bowel demonstrates no evidence for dilatation or air fluid levels. Gas and fecal material is seen in non-distended colon. No convincing evidence for pneumoperitoneum. No significant change in 7 mm suspected right distal ureter calculus. No definitive renal calculi. The lung bases are clear. The osseous structures are intact. IMPRESSION: No significant change in 7 mm suspected right distal ureter calculus. [facility], , 05/21/2024 1:12 PM
[2024-05-21] MEDS: LACTATED RINGERS 1,000 ML IV SCH (13:54)
[2024-05-21] MEDS: DEXAMETHASONE SOD PHOSPHATE 4 MG/ML 1 ML VIAL IV ONE (13:54)
[2024-05-21] MEDS: ONDANSETRON 4 MG/2 ML VIAL IVP ONE (13:54)
[2024-05-21] MEDS: IV FLUID CONTINUATION 1,000 ML IV ONE (13:56)
[2024-05-21] MEDS ORDERED: MIDAZOLAM 2 MG/2 ML VIAL ONE (15:39)
[2024-05-21] MEDS ORDERED: fentaNYL (PF) 50 MCG/ML 2 ML AMP ONE (15:39)
[2024-05-21] MEDS ORDERED: LIDOCAINE 1% INJ 10MG/ML (20 ML MDV) ONE (15:39)
[2024-05-21] MEDS ORDERED: PROPOFOL 10 MG/ML 20 ML VIAL IV ONE (15:39)
[2024-05-21] MEDS ORDERED: HYDROmorphone (PF) 1 MG/ML ONE (15:39)
[2024-05-21] MEDS: LACTATED RINGERS 1,000 ML IV ONE (16:15)
--- NOTE | 2024-05-21 16:34 | P.OP ---
Date of Procedure: 05/21/24 Preoperative Diagnosis: right ureteral calculus with obstruction Postoperative Diagnosis: same Procedure(s) Performed: cystoscopy with right ureteroscopy and laser lithotripsy, stone basketing Anesthesia: JESUSA Surgeon: Joseluis Gillette Estimated Blood Loss (ml): 10 Pathology: other (stone) Condition: stable Disposition: PACU Indications for Procedure: 48-year-old gentleman with a 70 mm distal ureteral stone that he has failed to pass over the last several weeks. He comes for a right ureteroscopy with laser lithotripsy Description of Procedure: patient brought to the operating suite. Given a general anesthetic. Placed lithotomy position with a sterile prep and drape. Cystoscopy identifies a normal urethra and prostate. The bladder tucker unremarkable. The stone is seen near the intramural tunnel on fluoroscopy. I introduced the semirigid 7-Faroese ureteroscope into the bladder into the right ureter where the stone is seen. With the 365 laser probe and 10 W of energy the stone was broken into tiny pieces. The largest fragments are basketed. Then the procedure the ureters inspected. There is a mild amount of edema. The patient adamantly does not wish to have the stent. I thus removed the ureteroscope. The bladder is drained. The patient is awakened and returned recovery room good condition. He tolerated the procedure well be discharged home upon recovery and found the office in approximately 1 week.
[2024-05-21 16:46] VITALS: RESP 16; TEMP 97.1
[2024-05-21] MEDS: HYDROmorphone 0.5 MG/0.5 ML SYRINGE IVP PRN (17:06)
[2024-05-21] MEDS: HYDROcodone/APAP 5-325MG 1 EACH TAB PO STA (17:18)
--- NOTE | 2024-05-21 17:18 | FL ---
EXAMINATION TYPE: FL guidance operating room DATE OF EXAM: 05/21/2024 4:38 PM COMPARISON: Pre Operative Images if available both CT/MRI or plain film CLINICAL INDICATION: Male, 48 years old with history of RIGHT URETERAL STONE; TECHNIQUE: FL guidance operating room, multiple fluoroscopic images provided for procedure. Total fluoroscopy time: 4 seconds Total submitted images to PACS: 1 DAP: [id number] mGym2 Gycm2 uGym2 cGycm2 or equivalent. FINDINGS: Intraoperative fluoroscopic images were taken No evidence for acute process. IMPRESSION: 1. No evidence for intraoperative complication. 2. Please see the operative/procedural note for further details. [facility], , 05/21/2024 5:16 PM
[2024-05-21 17:35] VITALS: BP 158/83; PULSE 88
== END 2024-05-21 17:56 | disposition home or self-care (01) ==
LOC: OR 12:53
PROVIDERS: ATTEND Urology
DX: N20.1 Calculus of ureter (principal); E78.5 Hyperlipidemia, unspecified; K76.0 Fatty (change of) liver, not elsewhere classified; F17.210 Nicotine dependence, cigarettes, uncomplicated; Z79.899 Other long term (current) drug therapy; Z88.0 Allergy status to penicillin; Z98.890 Other specified postprocedural states
CPT/HCPCS: 82365; 74018; 52353; J2250; J1100; J0690; J2405; J2003; J3010; J1171 ×2; J2704

== ENCOUNTER 2024-05-23 13:36 | Emergency (ER) | payer OTHER ==
[2024-05-23 13:44] VITALS: RESP 18; TEMP 97.8
[2024-05-23] MEDS: KETOROLAC 15 MG/ML 1 ML VIAL IVP STA (14:24)
[2024-05-23] MEDS: ONDANSETRON 4 MG/2 ML VIAL IVP STA (14:25)
[2024-05-23] MEDS: SODIUM CHLORIDE 0.9% 2,000 ML IV STA (14:25)
[2024-05-23] MEDS: HYDROmorphone 0.5 MG/0.5 ML SYRINGE IVP STA (14:25)
[2024-05-23 14:26] LABS: Basophils % (A) 0 %; Eosinophils # (A) 0.2 k/uL (0-0.7); Eosinophils % (A) 2 %; HCT 41.4 % (39.0-53.0); HGB 13.8 gm/dL (13.0-17.5); Lymphocytes # (A) 3.1 k/uL (1.0-4.8); Lymphocytes % (A) 32 %; MCHC 33.2 g/dL (31.0-37.0); MCV 96.5 fL (80.0-100.0); Monocytes # (A) 0.4 k/uL (0-1.0); Monocytes % (A) 4 %; Neutrophils # (A) 6.1 k/uL (1.3-7.7); Neutrophils % (A) 61 %; Platelet Count 131 k/uL (150-450); RBC 4.29 m/uL (4.30-5.90); RDW 13.1 % (11.5-15.5); WBC 9.9 k/uL (3.8-10.6)
[2024-05-23 14:41] LABS: ALT 28 U/L (4-49); AST 25 U/L (17-59); African American GFR (CKD) >90 (>60 ml/min/1.73 sqM); Albumin 4.1 g/dL (3.5-5.0); Alkaline Phosphatase 65 U/L (38-126); Anion Gap 7 mmol/L; Blood Urea Nitrogen 21 mg/dL (9-20); Calcium 8.9 mg/dL (8.4-10.2); Carbon Dioxide 26 mmol/L (22-30); Chloride 106 mmol/L (98-107); Glucose 97 mg/dL (74-99); Lipase 87 U/L (23-300); Non-African American GFR(CKD) >90 (>60 ml/min/1.73 sqM); Potassium 3.8 mmol/L (3.5-5.1); Sodium 139 mmol/L (137-145); Total Bilirubin 0.4 mg/dL (0.2-1.3); Total Protein 6.2 g/dL (6.3-8.2)
[2024-05-23 15:18] LABS: Appearance,Urine Cloudy (Clear); Bilirubin,Urine Negative (Negative); Blood,Urine Large (Negative); Color,Urine Light Red; Glucose,Urine (UA) Negative (Negative); Ketones,Urine Negative (Negative); Leukocyte Esterase,Urine Moderate (Negative); Nitrite,Urine Negative (Negative); PH, Urine 5.5 (5.0-8.0); Protein,Urine 1+ (Negative); RBC,Urine >182 /hpf (0-5); Specific Gravity,Urine 1.023 (1.001-1.035); Squamous Epithelial Cell,Urine 1 /hpf (0-4); Urobilinogen,Urine <2.0 mg/dL (<2.0); WBC,Urine 95 /hpf (0-5)
--- NOTE | 2024-05-23 15:41 | ED ---
General Adult HPI - General Chief complaint: Urogenital Stated complaint: Post-op comp Time Seen by Provider: 05/23/24 13:49 Source: patient, RN notes reviewed Mode of arrival: ambulatory Limitations: no limitations - History of Present Illness Initial comments: 48-year-old male presents emergency department complaint of flank pain, hematuria. Patient states that he had a cystoscopy with right ureteral stone removal. Patient states this was performed [address] Gillette. He. Patient states that he did have some blood but seem to worsen he noticed some clots he does have initial dysuria he states he still has some pain rating to his right flank no fevers or chills admits to some nausea he did take some Trilla for the pain but states he had taken extra 1 to help control symptoms. Patient denies any chest pain no other complaints. - Related Data Home Medications Medication Instructions Recorded Confirmed Atorvastatin [Lipitor] 20 mg PO HS 09/29/23 05/23/24 allopurinoL [Zyloprim] 300 mg PO DAILY 09/29/23 05/23/24 HYDROcodone/APAP 5-325MG [Trilla 1 tab PO Q4HR PRN 05/23/24 05/23/24 5-325] Previous Rx's Medication Instructions Recorded Tamsulosin [Flomax] 0.4 mg PO DAILY 14 Days #14 cap 11/03/23 Ciprofloxacin HCl [Cipro] 500 mg PO Q12HR #14 tablet 05/23/24 Allergies Allergy/AdvReac Type Severity Reaction Status Date / Time amoxicillin Allergy Unknown Verified 05/23/24 14:58 Childhood Penicillins Allergy Unknown Verified 05/23/24 14:58 Childhood Review of Systems ROS Statement: Those systems with pertinent positive or pertinent negative responses have been documented in the HPI. ROS Other: All systems not noted in ROS Statement are negative. Past Medical History Past Medical History: Hyperlipidemia, Liver Disease Additional Past Medical History / Comment(s): Fatty liver. Current Kidney stones, gout. Hx of kidney failure 2020 ? r/t BP meds. History of Any Multi-Drug Resistant Organisms: None Reported Additional Past Surgical History / Comment(s): Kidney stone surgery. hernia repair Past Anesthesia/Blood Transfusion Reactions: No Reported Reaction Past Psychological History: No Psychological Hx Reported Smoking Status: Current every day smoker Past Alcohol Use History: Rare Past Drug Use History: None Reported - Past Family History Father Family Medical History: No Reported History General Exam Limitations: no limitations General appearance: alert, in no apparent distress Head exam: Present: atraumatic, normocephalic, normal inspection Respiratory exam: Present: normal lung sounds bilaterally. Absent: respiratory distress, wheezes, rales, rhonchi, stridor Cardiovascular Exam: Present: regular rate, normal rhythm, normal heart sounds. Absent: systolic murmur, diastolic murmur, rubs, gallop, clicks GI/Abdominal exam: Present: soft, tenderness, normal bowel sounds. Absent: distended, guarding, rebound, rigid Back exam: Present: CVA tenderness (R). Absent: CVA tenderness (L) Course Vital Signs 05/23/24 13:41 Temperature 97.8 F Pulse Rate 81 Respiratory 18 Rate Blood Pressure 135/78 O2 Sat by Pulse 98 Oximetry Medical Decision Making - Medical Decision Making Was pt. sent in by a medical professional or institution (, PA, [employer], urgent care, hospital, or custodial...) When possible be specific @ -No Did you speak to anyone other than the patient for history (EMS, parent, family, police, friend...)? What history was obtained from this source @ -No Did you review nursing and triage notes (agree or disagree)? Why? @ -I reviewed and agree with nursing and triage notes Were old charts reviewed (outside hosp., previous admission, EMS record, old EKG, old radiological studies, urgent care reports/EKG's, custodial records)? Report findings @ -Reviewed inpatient surgical records Differential Diagnosis (chest pain, altered mental status, abdominal pain women, abdominal pain men, vaginal bleeding, weakness, fever, dyspnea, syncope, headache, dizziness, GI bleed, back pain, seizure, CVA, palpatations, mental health, musculoskeletal)? @ -Differential Abdominal Pain Men: Appendicitis, cholecystitis, diverticulosis, ischemic bowel, pancreatitis, hepatitis, UTI, gastroenteritis, AAA, incarcerated hernia, bowel obstruction, constipation, inflammatory bowel, hepatitis, peptic ulcer disease, splenic infarction, perforated viscus, testicular torsion, this is not meant to be an all-inclusive list EKG interpreted by me (3pts min.). @ -[None X-rays interpreted by me (1pt min.). @ -None done CT interpreted by me (1pt min.). @ -None done U/S interpreted by me (1pt. min.). @ -None done What testing was considered but not performed or refused? (CT, X-rays, U/S, labs)? Why? @ -None What meds were considered but not given or refused? Why? @ -None Did you discuss the management of the patient with other professionals (professionals i.e. DrGuerline, PA, [employer], lab, RT, psych nurse, social group worker, life support technician, teacher, conservation enforcement officer, pillowcase cleaner)? Give summary @ -No Was smoking cessation discussed for >3mins.? @ -No Was critical care preformed (if so, how long)? @ -No Were there social determinants of health that impacted care today? How? (Homelessness, low income, unemployed, alcoholism, drug addiction, transportation, low edu. Level, literacy, decrease access to med. care, senior care, rehab)? @ -No Was there de-escalation of care discussed even if they declined (Discuss DNR or withdrawal of care, Hospice)? DNR status @ -No What co-morbidities impacted this encounter? (DM, HTN, Smoking, COPD, CAD, Cancer, CVA, ARF, Chemo, Hep., AIDS, mental health diagnosis, sleep apnea, morbid obesity)? @ -None Was patient admitted / discharged? Hospital course, mention meds given and route, prescriptions, significant lab abnormalities, going to OR and other pertinent info. @ -Discharge patient's laboratory studies unremarkable. Patient feels great improved after IV fluids and analgesics. Patient does have greater than 182 reds and moderate amount of white cells. Patient is concerned for UTI. Patient placed on oral antibiotics. Return parens were discussed. Undiagnosed new problem with uncertain prognosis? @ -No Drug Therapy requiring intensive monitoring for toxicity (Heparin, Nitro, Insulin, Cardizem)? @ -No Were any procedures done? @ -No Diagnosis/symptom? @ -Hematuria, flank pain Acute, or Chronic, or Acute on Chronic? @ -Acute Uncomplicated (without systemic symptoms) or Complicated (systemic symptoms)? @ -Uncomplicated Side effects of treatment? @ -No Exacerbation, Progression, or Severe Exacerbation? @ -No Poses a threat to life or bodily function? How? (Chest pain, USA, GA, pneumonia, PE, COPD, DKA, ARF, appy, cholecystitis, CVA, Diverticulitis, Homicidal, Suicidal, threat to staff... and all critical care pts) @ -No - Lab Data Result diagrams: 05/23/24 14:19 05/23/24 14:19 Lab Results 05/23/24 05/23/24 05/23/24 Range/Units 14:19 14:19 14:19 WBC 9.9 (3.8-10.6) k/uL RBC 4.29 L (4.30-5.90) m/uL Hgb 13.8 (13.0-17.5) gm/dL Hct 41.4 (39.0-53.0) % MCV 96.5 (80.0-100.0) fL MCH 32.0 (25.0-35.0) pg MCHC 33.2 (31.0-37.0) g/dL RDW 13.1 (11.5-15.5) % Plt Count 131 L (150-450) k/uL MPV 7.0 Neutrophils % 61 % Lymphocytes % 32 % Monocytes % 4 % Eosinophils % 2 % Basophils % 0 % Neutrophils # 6.1 (1.3-7.7) k/uL Lymphocytes # 3.1 (1.0-4.8) k/uL Monocytes # 0.4 (0-1.0) k/uL Eosinophils # 0.2 (0-0.7) k/uL Basophils # 0.0 (0-0.2) k/uL Sodium 139 (137-145) mmol/L Potassium 3.8 (3.5-5.1) mmol/L Chloride 106 (98-107) mmol/L Carbon Dioxide 26 (22-30) mmol/L Anion Gap 7 mmol/L BUN 21 H (9-20) mg/dL Creatinine 0.86 (0.66-1.25) mg/dL Est GFR (CKD-EPI)AfAm >90 (>60 ml/min/1.73 sqM) Est GFR (CKD-EPI)NonAf >90 (>60 ml/min/1.73 sqM) Glucose 97 (74-99) mg/dL Calcium 8.9 (8.4-10.2) mg/dL Total Bilirubin 0.4 (0.2-1.3) mg/dL AST 25 (17-59) U/L ALT 28 (4-49) U/L Alkaline Phosphatase 65 (38-126) U/L Total Protein 6.2 L (6.3-8.2) g/dL Albumin 4.1 (3.5-5.0) g/dL Lipase 87 (23-300) U/L Urine Color Light Red Urine Appearance Cloudy (Clear) Urine pH 5.5 (5.0-8.0) Ur Specific [place] 1.023 (1.001-1.035) Urine Protein 1+ H (Negative) Urine Glucose (UA) Negative (Negative) Urine Ketones Negative (Negative) Urine Blood Large H (Negative) Urine Nitrite Negative (Negative) Urine Bilirubin Negative (Negative) Urine Urobilinogen <2.0 (<2.0) mg/dL Ur Leukocyte Esterase Moderate H (Negative) Urine RBC >182 H (0-5) /hpf Urine WBC 95 H (0-5) /hpf Ur Squamous Epith Cells 1 (0-4) /hpf Disposition Clinical Impression: Hematuria, Flank pain, Abdominal pain Disposition: HOME SELF-CARE Condition: Stable Instructions (If sedation given, give patient instructions): Urinary Tract Infection in Men (ED) Additional Instructions: Please return to the Emergency Department if symptoms worsen or any other concerns. Prescriptions: Ciprofloxacin HCl [Cipro] 500 mg PO Q12HR #14 tablet Is patient prescribed a controlled substance at d/c from ED?: No Referrals: Sergio Thompson DO [Primary Care Provider] - 1-2 days Joseluis Gillette MD [STAFF PHYSICIAN] - 1-2 days Time of Disposition: 15:41
[2024-05-23 15:49] VITALS: BP 133/68; PULSE 74
== END 2024-05-23 15:48 | disposition home or self-care (01) ==
LOC: EC 13:36
DX: R31.9 Hematuria, unspecified (principal); R10.9 Unspecified abdominal pain; F17.200 Nicotine dependence, unspecified, uncomplicated; Z88.0 Allergy status to penicillin
CPT/HCPCS: 36415; 80053; 83690; 85025; 81001; 87086; 99283; 96374; 96375 ×2; 96361; J2405; J1885; J1171

== ENCOUNTER → 2024-09-10 | Outpatient (CLI) | payer BC ==
--- NOTE | 2024-09-11 06:59 | CT ---
EXAMINATION TYPE: CT abdomen pelvis w con DATE OF EXAM: 09/10/2024 COMPARISON: CT abdomen and pelvis November 03, 2023 CLINICAL INDICATION: Male, 48 years old with history of K66.8 OTHER SPECIFIED DISORDERS OF PERITONEUM ; PHH, ABD NODULE TECHNIQUE: Performed with Oral Contrast and with IV Contrast, patient injected with 100ml mL of Isovue 300. CT DLP: 1403.2 mGycm Automated exposure control for dose reduction was used. FINDINGS: LUNG BASES: No significant abnormality is appreciated. LIVER/GB: No significant abnormality is appreciated. PANCREAS: No significant abnormality is seen. SPLEEN: No significant abnormality is seen. ADRENALS: No significant abnormality is seen. KIDNEYS: Persistent 5 mm nonobstructing calculus right kidney axial image 38. There is symmetric dania ical medullary uptake and excretion from both kidneys without hydronephrosis seen bilaterally. FREE AIR: No free air is visualized. RETROPERITONEAL ADENOPATHY: None visualized REPRODUCTIVE ORGANS: No significant abnormality is seen URINARY BLADDER: No significant abnormality is seen. PELVIC ADENOPATHY: None visualized. OSSEOUS STRUCTURES: No significant abnormality is seen. BOWEL: Oral contrast reaches the rectum. No abnormal small or large bowel dilatation. Mild wall thic kening left colon is nonspecific taper product of poor distention. OTHER: Stable moderate-sized fat-containing periumbilical hernia sagittal image 63. Stable moderate-s ized fat-containing left inguinal hernia. A few subcentimeter lymph nodes throughout the mesentery are noted. Stable 11 mm low density mass pre sumed lymph node adjacent to the right colon on coronal image 51 is noted. IMPRESSION: Stable right lower quadrant 11 mm low dense mass possible lymph node adjacent to the righ t colon. No significant change from most recent prior CT. [facility], , 09/11/2024 6:56 AM
== END | disposition home or self-care (01) ==
LOC: RADCTMAIN 14:17
PROVIDERS: ATTEND Internal Medicine
DX: N20.0 Calculus of kidney (principal); K66.8 Other specified disorders of peritoneum; K40.90 Unilateral inguinal hernia, without obstruction or gangrene, not specified as recurrent
CPT/HCPCS: 74177; Q9967

== ENCOUNTER → 2024-10-25 | Outpatient (CLI) | payer BC ==
--- NOTE | 2024-10-25 16:28 | XR ---
EXAMINATION TYPE: XR KUB DATE OF EXAM: 10/25/2024 3:28 PM CLINICAL INDICATION: Male, 48 years old with history of N20.0 CALCULUS OF KIDNEY, pain TECHNIQUE: 2 supine images of the abdomen. COMPARISON: CT abdomen and pelvis September 10, 2024. FINDINGS: There is a 2 to 3 mm right renal calculus redemonstrated at superior L3 level. No left-side d nephrolithiasis. Overall nonspecific nonobstructive bowel gas pattern. Visualized lung bases are clear. Osseous struct ures are intact. IMPRESSION: As above. [facility], , 10/25/2024 4:26 PM
== END | disposition home or self-care (01) ==
LOC: RADXRMAIN 15:16
PROVIDERS: ATTEND Urology
DX: N20.0 Calculus of kidney (principal)
CPT/HCPCS: 74018

== ENCOUNTER 2024-11-28 11:53 | Emergency (ER) | payer BC ==
--- NOTE | 2024-11-28 12:37 | ED ---
General Adult HPI - General Chief complaint: Recheck/Abnormal Lab/Rx Stated complaint: groin pain, R leg pain Time Seen by Provider: 11/28/24 12:05 Source: patient Mode of arrival: ambulatory Limitations: no limitations - History of Present Illness Initial comments: Dictation was produced using [employer] dictation software. please excuse any grammatical, word or spelling errors. Chief Complaint: 49-year-old male with right-sided groin pain and right testicular pain History of Present Illness: Patient 49-year-old male with past medical history of dyslipidemia liver disease. States that he is here today for right testicular pain and right groin pain. Denies any urinary symptoms. Patient states that it hurts in his testicular area. No rash fever or chills. No urinary symptoms. The ROS documented in this emergency department record has been reviewed and confirmed by me. Those systems with pertinent positive or negative responses have been documented in the HPI. All other systems are other negative and/or noncontributory. - Related Data Home Medications Medication Instructions Recorded Confirmed Atorvastatin [Lipitor] 20 mg PO HS 09/29/23 05/23/24 allopurinoL [Zyloprim] 300 mg PO DAILY 09/29/23 05/23/24 HYDROcodone/APAP 5-325MG [Wendell 1 tab PO Q4HR PRN 05/23/24 05/23/24 5-325] Previous Rx's Medication Instructions Recorded Tamsulosin [Flomax] 0.4 mg PO DAILY 14 Days #14 cap 11/03/23 Ciprofloxacin HCl [Cipro] 500 mg PO Q12HR #14 tablet 05/23/24 HYDROcodone/APAP 5-325MG [Wendell 1 tab PO Q6HR PRN 3 Days #12 tab 11/28/24 5-325] Allergies Allergy/AdvReac Type Severity Reaction Status Date / Time amoxicillin Allergy Unknown Verified 11/28/24 12:03 Childhood Penicillins Allergy Unknown Verified 11/28/24 12:03 Childhood Review of Systems ROS Statement: Those systems with pertinent positive or pertinent negative responses have been documented in the HPI. ROS Other: All systems not noted in ROS Statement are negative. Past Medical History Past Medical History: Hyperlipidemia, Liver Disease Additional Past Medical History / Comment(s): Fatty liver. Current Kidney stones, gout. Hx of kidney failure 2019 ? r/t BP meds. History of Any Multi-Drug Resistant Organisms: None Reported Additional Past Surgical History / Comment(s): Kidney stone surgery. hernia repair Past Anesthesia/Blood Transfusion Reactions: No Reported Reaction Past Psychological History: No Psychological Hx Reported Smoking Status: Current every day smoker Past Alcohol Use History: Rare Past Drug Use History: None Reported - Past Family History Father Family Medical History: No Reported History General Exam - General Exam Comments Initial Comments: General: Well-appearing, nontoxic, no acute distress. Head: Normocephalic, atraumatic Eyes: PERRLA, EOMI ENT: Airway patent Chest: Nonlabored breathing Skin: No visual rash, normal skin tone Neuro: Alert and oriented 3 Musculoskeletal: No gross abnormalities : No scrotal rash, no scrotal tenderness, no ecchymoses, no high riding testicle Limitations: no limitations Course Vital Signs 11/28/24 11/28/24 12:01 14:06 Temperature 98 F 98.2 F Pulse Rate 98 81 Respiratory 18 17 Rate Blood Pressure 153/80 162/90 O2 Sat by Pulse 98 98 Oximetry Medical Decision Making - Medical Decision Making Was pt. sent in by a medical professional or institution (, PA, SCHOOL TREASURER, urgent care, hospital, or penitentiary...) When possible be specific @ -No Did you speak to anyone other than the patient for history (EMS, parent, family, police, friend...)? What history was obtained from this source @ -No Did you review nursing and triage notes (agree or disagree)? Why? @ -I reviewed and agree with nursing and triage notes Were old charts reviewed (outside hosp., previous admission, EMS record, old EKG, old radiological studies, urgent care reports/EKG's, penitentiary records)? Report findings @ -No old charts were reviewed Differential Diagnosis (chest pain, altered mental status, abdominal pain women, abdominal pain men, vaginal bleeding, musculoskeletal, weakness, fever, dyspnea, syncope, headache, dizziness, GI bleed, back pain, seizure, CVA, palpatations, mental health)? @ -Torsion, epididymitis, orchitis EKG interpreted by me (3pts min.). @ -None done X-rays interpreted by me (1pt min.). @ -None done CT interpreted by me (1pt min.). @ -None done U/S interpreted by me (1pt. min.). @ -Ultrasound scrotum is negative for any acute processes. What testing was considered but not performed or refused? (CT, X-rays, U/S, labs)? Why? @ -None What meds were considered but not given or refused? Why? @ -None Was smoking cessation discussed for >3mins.? @ -No Were there social determinants of health that impacted care today? How? (Homelessness, low income, unemployed, alcoholism, drug addiction, transportation, low edu. Level, literacy, decrease access to med. care, skilled nursing, rehab)? @ -No Was there de-escalation of care discussed even if they declined (Discuss DNR or withdrawal of care, Hospice)? DNR status @ -No What co-morbidities impacted this encounter? (DM, HTN, Smoking, COPD, CAD, Cancer, CVA, ARF, Chemo, Hep., AIDS, mental health diagnosis, sleep apnea, morbid obesity)? @ -None Was patient admitted / discharged? Hospital course, mention meds given and route, prescriptions, significant lab abnormalities, going to OR and other pertinent info. @ -49-year-old male presents emergency department right groin and right scrotal pain. Vital signs stable. Physical examination is benign. Patient has musculoskeletal bone. Urinalysis and ultrasound scrotum shows no acute processes. Patient given prescription for analgesics discharge advised follow- up with primary practice doctor. Did you discuss the management of the patient with other professionals (professionals i.e. , PA, SCHOOL TREASURER, lab, RT, psych nurse, aids social worker, pipeman, teacher, police officer booking, bilingual case manager)? Give summary @ -No Was critical care preformed (if so, how long)? @ -No Undiagnosed new problem with uncertain prognosis? @ -No Drug Therapy requiring intensive monitoring for toxicity (Heparin, Nitro, Insulin, Cardizem)? @ -No Were any procedures done? @ -No Diagnosis/symptom? Acute, or Chronic, or Acute on Chronic? Uncomplicated (without systemic symptoms) or Complicated (systemic symptoms)? @ -Groin strain Side effects of treatment? @ -No Exacerbation, Progression, or Severe Exacerbation? @ -No Poses a threat to life or bodily function? How? (Chest pain, USA, [place], pneumonia, PE, COPD, DKA, ARF, appy, cholecystitis, CVA, Diverticulitis, Homicidal, Suicidal, threat to staff... and all critical care pts) @ -No - Lab Data Lab Results 11/28/24 Range/Units 12:40 Urine Color Yellow Urine Appearance Clear (Clear) Urine pH 5.0 (5.0-8.0) Ur Specific [place] 1.026 (1.001-1.035) Urine Protein Negative (Negative) Urine Glucose (UA) Negative (Negative) Urine Ketones Negative (Negative) Urine Blood Small H (Negative) Urine Nitrite Negative (Negative) Urine Bilirubin Negative (Negative) Urine Urobilinogen <2.0 (<2.0) mg/dL Ur Leukocyte Esterase Negative (Negative) Urine RBC 1 (0-5) /hpf Urine WBC 1 (0-5) /hpf Urine Mucus Rare H (None) /hpf Disposition Clinical Impression: Groin pain Disposition: HOME SELF-CARE Condition: Fair Instructions (If sedation given, give patient instructions): Groin Pain (ED) Prescriptions: HYDROcodone/APAP 5-325MG [Wendell 5-325] 1 tab PO Q6HR PRN 3 Days #12 tab PRN Reason: Severe Pain Is patient prescribed a controlled substance at d/c from ED?: Yes If prescribed controlled substance>3 days was MAPS reviewed?: Prescribed <3 Days Referrals: Sergio Thompson DO [Primary Care Provider] - 1-2 days Time of Disposition: 14:33
[2024-11-28 14:04] LABS: Appearance,Urine Clear (Clear); Bilirubin,Urine Negative (Negative); Blood,Urine Small (Negative); Color,Urine Yellow; Glucose,Urine (UA) Negative (Negative); Ketones,Urine Negative (Negative); Leukocyte Esterase,Urine Negative (Negative); Mucus,Urine Rare /hpf; Nitrite,Urine Negative (Negative); Protein,Urine Negative (Negative); RBC,Urine 1 /hpf (0-5); Specific Gravity,Urine 1.026 (1.001-1.035); Urobilinogen,Urine <2.0 mg/dL (<2.0); WBC,Urine 1 /hpf (0-5)
[2024-11-28] MEDS: HYDROcodone/APAP 5-325MG 1 EACH TAB PO STA (14:04)
--- NOTE | 2024-11-28 14:24 | US ---
EXAMINATION TYPE: US scrotum with doppler. DATE OF EXAM: 11/28/2024 COMPARISON: NONE CLINICAL INDICATION: Male, 49 years old with history of right testicular pain; right side pain x 1.5 weeks, Hx bilateral inguinal hernias TECHNIQUE: Grayscale, color Doppler and spectral Doppler imaging of the scrotum. FINDINGS: EXAM MEASUREMENTS: TESTICLES: Right Testicle: 2.7x2.5x3.8 cm Left Testicle: 4.0x2.3x2.2 cm EPIDIDYMIS HEAD: Right Epididymis: 1.0 cm Left Epididymis: 1.0 cm Doppler performed to assess for testicular vascularity; good bilateral color flow and spectral wavefo mee are seen. There is no evidence of testicular torsion. Presence of hydroceles: no Presence of varicoceles: Left There is hemiscrotal wall thickening up to 0.9cm Likely fatty hernia extending into the upper left scrotum appears to be predominantly compressible in to the inguinal canal IMPRESSION: 1. No sonographic evidence for testicular torsion or epididymoorchitis. 2. Bilateral hemiscrotal skin thickening is nonspecific and may reflect third spacing. Correlate to e xclude cellulitis. No hydroceles. 3. Suggestion of a fatty left inguinal hernia extending into the upper left scrotal sac. This appears to be reducible into the inguinal canal. [facility], Workstation: [id number], 11/28/2024 2:22 PM
[2024-11-28 14:42] VITALS: BP 158/87; PULSE 77; RESP 18; TEMP 98.3
== END 2024-11-28 14:41 | disposition home or self-care (01) ==
LOC: EC 11:53
DX: S39.011A Strain of muscle, fascia and tendon of abdomen, initial encounter (principal); F17.200 Nicotine dependence, unspecified, uncomplicated; Z88.0 Allergy status to penicillin; X58.XXXA Exposure to other specified factors, initial encounter
CPT/HCPCS: 76870; 81001; 93975; 99284

== ENCOUNTER → 2025-01-17 | Outpatient (CLI) | payer BC ==
[2025-01-17 20:03] LABS: ALT 55 U/L (10-49); AST 34 U/L (14-35); Albumin 4.6 g/dL (3.8-4.9); Albumin/Globulin Ratio 2.30 Ratio (1.60-3.17); Alkaline Phosphatase 78 U/L (41-126); Anion Gap 13.50 mmol/L (4.00-12.00); BUN/Creat Ratio 14.50 Ratio (12.00-20.00); Blood Urea Nitrogen 11.6 mg/dL (9.0-27.0); Calcium 9.0 mg/dL (8.7-10.3); Carbon Dioxide 24.5 mmol/L (21.6-31.8); Chloride 101 mmol/L (96-109); Globulin 2.0 g/dL (1.6-3.3); Glucose 114 mg/dL (70-110); Potassium 4.3 mmol/L (3.5-5.5); Sodium 139 mmol/L (135-145); Total Protein 6.6 g/dL (6.2-8.2)
== END | disposition home or self-care (01) ==
LOC: LABWHC1 15:04
PROVIDERS: ATTEND Internal Medicine
DX: E55.9 Vitamin D deficiency, unspecified (principal); R79.89 Other specified abnormal findings of blood chemistry
CPT/HCPCS: 36415; 80053; 82306; 83970; 84100

== ENCOUNTER → 2025-02-12 | Outpatient (CLI) | payer BC ==
--- NOTE | 2025-02-12 15:37 | XR ---
EXAMINATION TYPE: XR KUB DATE OF EXAM: 02/12/2025 COMPARISON: 10/25/2024 CLINICAL INDICATION: Male, 49 years old with history of CALCULUS OF KIDNEY; TECHNIQUE: XR KUB views of the abdomen. FINDINGS: The osseous structures are intact. The bowel gas pattern is nonspecific. Lung bases are clear. Mild hypertrophic arthropathy of the hip. Punctate 2 mm right renal mid pole calculus. No definite calculi overlying the left kidney. IMPRESSION: 1. Punctate 2 mm right renal calculi. [facility], , 02/12/2025 3:35 PM
[2025-02-12 17:32] LABS: Bilirubin,Urine Negative (Negative); Blood,Urine Negative (Negative); Color,Urine Yellow; Glucose,Urine (UA) Negative (Negative); Ketones,Urine Negative (Negative); Leukocyte Esterase,Urine Negative (Negative); Nitrite,Urine Negative (Negative); PH, Urine 5.5 (5.0-8.0); Protein,Urine Negative (Negative); Specific Gravity,Urine 1.028 (1.001-1.035); Urobilinogen,Urine <2.0 mg/dL (<2.0)
== END | disposition home or self-care (01) ==
LOC: RADXRMAIN 15:05
PROVIDERS: ATTEND Internal Medicine
DX: N20.0 Calculus of kidney (principal)
CPT/HCPCS: 74018; 81003